=== PATIENT | male | born 1990 ===

== ENCOUNTER 2017-04-24 22:32 | Observation (INO) | payer MEDICAID ==
[2017-04-24] MEDS ORDERED: Sodium Chloride 0.9% 1,000 ML IV ONE (23:25)
[2017-04-24] MEDS ORDERED: Dexamethasone 4 mg/1 ml IVP STA (23:25)
[2017-04-24] MEDS ORDERED: Dexamethasone 4 mg/1 ml ONE (23:42)
[2017-04-24 23:43] LABS: BASO # 0.1 K/uL (0.0-0.2); BASO % 0.5 % (0.0-2.0); EOS # 0.1 K/uL (0.0-0.7); EOS % 0.4 % (0.0-4.0); HEMATOCRIT 41.1 % (35.0-51.0); LYMPH # 1.8 K/uL (1.0-4.3); MEAN CELL VOLUME 87.8 fL (80.0-94.0); MEAN CORPUSCULAR HEMOGLOBIN 28.5 pg (27.0-31.0); MEAN CORPUSCULAR HGB CONC 32.4 g/dL (33.0-37.0); MEAN PLATELET VOLUME 8.3 fL (7.2-11.7); MONO # 1.4 K/uL (0.0-0.8); MONO % 8.9 % (0.0-10.0); RED CELL DISTRIBUTION WIDTH 14.2 % (11.5-14.5); WHITE BLOOD COUNT 15.9 K/uL (4.8-10.8)
[2017-04-24 23:51] LABS: CHLORIDE 107 mmol/L (98-107); POTASSIUM 3.5 mmol/L (3.6-5.2); SODIUM 141 mmol/L (132-148)
[2017-04-24 23:53] LABS: GFR AFRICAN-AMERICAN > 60
[2017-04-24 23:54] LABS: ALB/GLOB RATIO 1.4 (1.0-2.1); ALKALINE PHOSPHATASE 49 U/L (38-126); ALT/SGPT 20 U/L (21-72); AST/SGOT 18 U/L (17-59); BLOOD UREA NITROGEN 11 mg/dL (9-20); CALCIUM 8.8 mg/dl (8.6-10.4); CARBON DIOXIDE 22 mmol/L (22-30); GLUCOSE,RANDOM 84 mg/dL (75-110)
[2017-04-25] MEDS ORDERED: Clindamycin 600mg/50ml D5W 600 MG/50 ML VIAL IVPB ONE ×2 (00:01→08:59)
--- NOTE | 2017-04-25 00:06 | C.PDOC ---
History Of Present Illness 26 y/o male presents to ED with c/o sore throat for 3 days. Patient also notes painful swallowing. Patient reports he was evaluated by PMD today, given rx for antibiotics, but did not fill prescription. Denies fever, vomiting, cough, or other associated symptoms. Notes history of peritonsilar abscess. Time Seen by Provider: 04/24/17 23:17 Chief Complaint (Nursing): ENT Problem History Per: Patient History/Exam Limitations: no limitations Onset/Duration Of Symptoms: Days Current Symptoms Are (Timing): Still Present Location Of Pain: Throat Associated Symptoms: Sore Throat. denies: Fever, Chills, Cough, Neck Pain, Vomiting, Diarrhea Ear Symptoms: Bilateral: None Recent travel outside of the [place]: No Past Medical History Reviewed: Historical Data, Nursing Documentation, Vital Signs Vital Signs: Last Vital Signs Temp 98.5 F 04/25/17 06:28 Pulse 62 04/25/17 06:28 Resp 14 04/25/17 06:28 BP 109/67 04/25/17 06:28 Pulse Ox 98 04/25/17 06:28 - Medical History PMH: No Chronic Diseases Family History: States: Unknown Family Hx - Social History Hx Alcohol Use: Yes Hx Substance Use: Yes - Immunization History Hx Tetanus Toxoid Vaccination: No Hx Influenza Vaccination: No Hx Pneumococcal Vaccination: No Review Of Systems Except As Marked, All Systems Reviewed And Found Negative. Constitutional: Negative for: Fever, Chills ENT: Positive for: Throat Pain. Negative for: Nose Congestion Respiratory: Negative for: Cough, Shortness of Breath, Wheezing Gastrointestinal: Negative for: Nausea, Vomiting Skin: Negative for: Rash Neurological: Negative for: Headache, Dizziness Physical Exam - Physical Exam Appears: Non-toxic, No Acute Distress Skin: Normal Color, Warm, Dry Head: Atraumatic, Normacephalic Eye(s): bilateral: Normal Inspection, PERRL, EOMI Ear(s): Bilateral: Normal Nose: Normal Oral Mucosa: Moist Throat: Erythema, No Drooling, Other (left peritonsilar swelling with mild uvula deviation ) Neck: Normal ROM, Supple Chest: Symmetrical, Other (speaking in full sentences) Cardiovascular: Rhythm Regular Respiratory: Normal Breath Sounds, No Stridor, No Wheezing Gastrointestinal/Abdominal: Soft, No Tenderness, No Guarding, No Rebound Back: Normal Inspection Extremity: Normal ROM, Capillary Refill (< 2 sec.) Neurological/Psych: Oriented x3, Normal Speech, Normal Cognition ED Course And Treatment - Laboratory Results Result Diagrams: 04/24/17 23:40 04/24/17 23:40 O2 Sat by Pulse Oximetry: 99 (RA) Pulse Ox Interpretation: Normal - CT Scan/US CT Neck Soft Tissue Other Rad Studies (CT/US): Read By Radiologist, Radiology Report Reviewed CT/US Interpretation: Name: GABRIELLA SALMERON Age: 26Years M Date: 04/24/2017. SSN: [id number] : 1990. Study: CT NECK SOFT TISSUE W Requesting Physician: Gretta Aquino PA-C. Images: 271. Addl Studies: Provided Clinical History: left peritonsillar abscess? CONFIDENTIALITY STATEMENT. This transmission is confidential and is intended to be a privileged communication. It is intended only for the use of the addressee. Access to this. message by anyone else is unauthorized. If you are not the intended recipient, any disclosure, copying, distribution or any action taken, or omitted to. be taken in reliance on it is prohibited and may be unlawful. If you received this communication in error, please notify us by telephone, so that return. of this document to us can be arranged. Page 1 of 2. EXAM: CT Neck With Intravenous Contrast. CLINICAL HISTORY: 26 years old, male; Pain; Throat pain; Additional info: Left peritonsillar abscess? TECHNIQUE : Axial computed tomography images of the neck with intravenous contrast. This CT exam was. performed using one or more of the following dose reduction techniques: automated exposure. control, adjustment of the mA and/or kV according to patient size, and/or use of iterative. reconstruction technique. Coronal and sagittal reformatted images were created and reviewed. CONTRAST: 100 mL of [id number] administered intravenously. COMPARISON: CT - NECK SOFT TISSUE W/CONTRAST 04/24/2016 6:42:26 PM. FINDINGS: Nasopharynx: Unremarkable. Oropharynx: Enlargement of palatine tonsils, LEFT greater than RIGHT with surrounding edema. 2.4 x 2.0 x 2.1 cm amorphous area of decreased attenuation with faint partial peripheral. enhancement within LEFT peritonsillar region. Hypopharynx: Unremarkable. Larynx: Unremarkable. Normal epiglottis. Trachea: Unremarkable. Retropharyngeal space: Unremarkable. Submandibular/parotid glands: Unremarkable. Glands are normal in size. Thyroid: Unremarkable. No enlarged or calcified nodules. Bones/joints: No acute fracture. Soft tissues: Unremarkable. Vasculature: No acute findings. Lymph nodes: Shotty cervical lymph nodes, likely reactive. Lung apices: Unremarkable as visualized. IMPRESSION: 1. Tonsillitis with LEFT peritonsillar phlegmon/early abscess. 2. Incidental/non-acute findings are described above. Progress Note: Treated with Toradol, Decadron, IV abx, and IV fluids. CT neck soft tissue and labs ordered, reviewed. Discussed with Dr. Vicente at 01:55. Requests to monitor pt in ER until he comes in the morning to evaluate. Disposition - Disposition Disposition Time: 06:47 Condition: STABLE - Clinical Impression Clinical Impression: Peritonsillar abscess - PA / BIOMEDICAL EQUIPMENT TECH / Resident Statement MD/DO has reviewed & agrees with the documentation as recorded. - Scribe Statement The provider has reviewed the documentation as recorded by the Nayeliibmariam Mantilla All medical record entries made by the Smita were at my direction and personally dictated by me. I have reviewed the chart and agree that the record accurately reflects my personal performance of the history, physical exam, medical decision making, and the department course for this patient. I have also personally directed, reviewed, and agree with the discharge instructions and disposition. Physician Patient Turnover Patient Signed Over To: Amada Contreras Handoff Comments: pending Dr Cinthia grossman
[2017-04-25] MEDS ORDERED: Iodixanol 320 MG/ML 100 ML BOTTLE IV ONE (00:12)
--- NOTE | 2017-04-25 01:30 | CT ---
EXAM: CT Neck With Intravenous Contrast CLINICAL HISTORY: 26 years old, male; Pain; Throat pain; Additional info: Left peritonsillar abscess? TECHNIQUE: Axial computed tomography images of the neck with intravenous contrast. This CT exam was performed using one or more of the following dose reduction techniques: automated exposure control, adjustment of the mA and/or kV according to patient size, and/or use of iterative reconstruction technique. Coronal and sagittal reformatted images were created and reviewed. CONTRAST: 100 mL of [id number] administered intravenously. COMPARISON: CT - NECK SOFT TISSUE W/CONTRAST 04/24/2016 6:42:26 PM FINDINGS: Nasopharynx: Unremarkable. Oropharynx: Enlargement of palatine tonsils, LEFT greater than RIGHT with surrounding edema. 2.4 x 2.0 x 2.1 cm amorphous area of decreased attenuation with faint partial peripheral enhancement within LEFT peritonsillar region. Hypopharynx: Unremarkable. Larynx: Unremarkable. Normal epiglottis. Trachea: Unremarkable. Retropharyngeal space: Unremarkable. Submandibular/parotid glands: Unremarkable. Glands are normal in size. Thyroid: Unremarkable. No enlarged or calcified nodules. Bones/joints: No acute fracture. Soft tissues: Unremarkable. Vasculature: No acute findings. Lymph nodes: Shotty cervical lymph nodes, likely reactive. Lung apices: Unremarkable as visualized. IMPRESSION: 1. Tonsillitis with LEFT peritonsillar phlegmon/early abscess. 2. Incidental/non-acute findings are described above.
[2017-04-25] MEDS ORDERED: Oxycodone/Acetaminophen 5/325 mg Tab PO STA (03:50)
[2017-04-25] MEDS ORDERED: Oxycodone/Acetaminophen 5/325 mg Tab ONE (04:20)
[2017-04-25] MEDS ORDERED: Lidocaine 1% w Epi 1:100,000 Inj INJ ONE (07:01)
[2017-04-25] MEDS ORDERED: Lidocaine 2% w Epi 1:100,000 Inj IJ ONE (07:30)
[2017-04-25] MEDS ORDERED: Dexamethasone 4 mg/1 ml IVP STA (08:46)
[2017-04-25] MEDS ORDERED: Dexamethasone 4 mg/1 ml ONE (08:59)
[2017-04-25] MEDS ORDERED: Dexamethasone 4 mg/1 ml IVP SCH (09:00)
[2017-04-25] MEDS ORDERED: Naproxen 550 mg Tab PO ONE (09:55)
--- NOTE | 2017-04-25 14:10 | CP.PCM.PN ---
Subjective - Date & Time of Evaluation Date of Evaluation: 04/25/17 Time of Evaluation: 08:00 - Subjective Subjective: see below Objective - Vital Signs/Intake and Output Vital Signs (last 24 hours): Temp Pulse Resp BP Pulse Ox 98.7 F 88 18 118/55 L 100 04/25/17 11:36 04/25/17 11:36 04/25/17 11:36 04/25/17 11:36 04/25/17 11:36 - Medications Medications: Current Medications Dexamethasone (Decadron Inj) 8 mg IVP Q8 STUART Stop: 04/25/17 16:00 Last Admin: 04/25/17 09:09 Dose: 8 mg Clindamycin Phosphate 600 mg/ (Sodium Chloride) 54 mls @ 100 mls/hr IVPB Q8H STUART Last Admin: 04/25/17 09:07 Dose: 100 mls/hr Assessment and Plan - Assessment and Plan (Free Text) Assessment: 26 y/o male with 4 days of left-sided sore throat. His pmd prescribed Clinda but he did not start it. He came in overnight with severe pain and inability to tolerate PO's. He has h/o [employer] in the past. PMH denies Allergies PCN Meds denies Social denies ETOH or IVDA Exam awake, alert, comfortable voice strong neck soft, no masses, no swelling oc/op: no trismus; left soft palate swollen, red and tender WBC 15.9 CT c/w left [employer] Procedure: fiberoptic laryngoscopy 02457: no oropharyngeal, hypopharyngeal or laryngeal edema Procedure: I&D left Peritonsillar abscess 49831. Left soft palate anesthetized with Lidocaine 1% with epi injection. Using 19g needle on 10cc syringe, 3cc of pus was aspirated from peritonsillar space. Repeat aspiration was -ve for further pus. Then a small mucosal incision was made with 15 blade and pertonsillar space / abscess cavity was entered and gently spread with sterile tonsil clamp. no further pus encountered. wound was irrigated with sterile saline. minimal expected bleeding, which self resolved. patient tolerated procedure well. no complications. Impression left Peritonsillar Abscess, s/p I&D dehydration Plan Admit for IV abx, IV steroids, IVF advance diet importance of taking all of abx after d/c stressed with patient, as was importance of probiotic. his female friend was also present at bedside. indication for tonsillectomy as o/p also d/w patient to prevent recurrence of [employer]
[2017-04-25] MEDS: Dextrose 5%/0.45% NS 1,000 ML IV SCH (15:05)
[2017-04-25 16:36] VITALS: RESP 20; O2SAT 98
[2017-04-25] MEDS: Clindamycin 600mg/50ml D5W 600 MG/50 ML VIAL IVPB SCH (18:12)
[2017-04-26] MEDS: Clindamycin 600mg/50ml D5W 600 MG/50 ML VIAL IVPB SCH ×2 (01:06→08:46)
[2017-04-26] MEDS: Dextrose 5%/0.45% NS 1,000 ML IV SCH (04:06)
[2017-04-26 08:46] VITALS: BP 105/61; PULSE 63; TEMP 97.2
== END 2017-04-26 12:06 | disposition home or self-care (01) ==
LOC: C.ER 22:32 → C.9OBSV 04-25 01:55 → C.9E 04-25 08:38 → C.6T 04-25 11:29
PROVIDERS: ADMIT Otolaryngology; ATTEND Otolaryngology
DX: J36 Peritonsillar abscess (principal); E86.0 Dehydration
CPT/HCPCS: 70491; 80053; 85025; 87040; 87070; 96365; 96374; 99285; G0378; J1100; J1885; J2270; J2405; J7040; J7042; Q9967

== ENCOUNTER 2018-05-05 23:00 | Emergency (ER) | payer MEDICAID ==
[2018-05-05 23:29] VITALS: BP 125/69; PULSE 68; RESP 18; TEMP 98; O2SAT 99
--- NOTE | 2018-05-06 00:16 | C.PDOC ---
History Of Present Illness 27 years old male presents to ED for complaints of left thumb swelling that began 3 days ago. Patient states he had a tendon rupture repair 2 months ago by . Over the last couple weeks, he developed "nodules of scar tissue", however, in the last 3 days patient noticed redness and swelling to area which prompted the ED visit. Denies PMHx of diabetes, fever, change in sensation or any other physical complaints. Patient also states he did not take any medication for pain. Time Seen by Provider: 05/05/18 23:46 Chief Complaint (Nursing): Abnormal Skin Integrity History Per: Patient History/Exam Limitations: no limitations Onset/Duration Of Symptoms: Days (3) Current Symptoms Are (Timing): Still Present Location Of Injury: Left: Hand (Swelling) Recent travel outside of the [place]: No Past Medical History Reviewed: Historical Data, Nursing Documentation, Vital Signs Vital Signs: Last Vital Signs Temp 98 F 05/05/18 23:24 Pulse 68 05/05/18 23:24 Resp 18 05/05/18 23:24 BP 125/69 05/05/18 23:24 Pulse Ox 99 05/06/18 02:01 - Medical History PMH: No Chronic Diseases Surgical History: No Surg Hx Family History: States: Unknown Family Hx - Social History Hx Alcohol Use: Yes (occasionally) Hx Substance Use: Yes (occasionally on family gatherings) - Immunization History Hx Tetanus Toxoid Vaccination: No Hx Influenza Vaccination: No Hx Pneumococcal Vaccination: No Review Of Systems Except As Marked, All Systems Reviewed And Found Negative. Skin: Positive for: Other (Left thumb swelling ) Physical Exam - Physical Exam Appears: Well, Non-toxic, No Acute Distress Skin: Warm, Dry, No Rash Head: Atraumatic, Normacephalic Eye(s): bilateral: Normal Inspection, EOMI Nose: Normal Oral Mucosa: Moist Neck: Normal ROM, Supple Chest: Symmetrical Respiratory: No Accessory Muscle Use Extremity: No Normal ROM, Tenderness (Right proximal thumb ), Swelling (Right proximal thumb ), Other (Well healed incision to the mid palmar aspect; erythema to right proximal aspect of thumb with healed incision) Pulses: Left Radial: Normal, Right Radial: Normal Neurological/Psych: Oriented x3, Normal Speech, Normal Sensation Gait: Steady ED Course And Treatment O2 Sat by Pulse Oximetry: 99 (RA) Pulse Ox Interpretation: Normal Progress Note: Administered Cleocin. Case discussed with who instructs antibiotics and to follow up in the office. PT verbalized understanding. Disposition - Disposition Referrals: Joce Mendez MD [Primary Care Provider] - Disposition: HOME/ ROUTINE Disposition Time: 00:13 Condition: STABLE Additional Instructions: Follow up with Dr Reyes in 1-2 days. Call the office at [phone]. Return to ER if symptoms persist or worsen. Prescriptions: Clindamycin [Cleocin] 300 mg PO Q6 #28 cap Instructions: Cellulitis (Skin Infection), Adult (DC) Forms: [employer] (Bulgarian) - Clinical Impression Clinical Impression: Cellulitis - PA / SHOE RECONDITIONER / Resident Statement MD/DO has reviewed & agrees with the documentation as recorded. - Scribe Statement The provider has reviewed the documentation as recorded by the Nayeliibmariam Parry All medical record entries made by the Nayeliibmariam were at my direction and personally dictated by me. I have reviewed the chart and agree that the record accurately reflects my personal performance of the history, physical exam, medical decision making, and the department course for this patient. I have also personally directed, reviewed, and agree with the discharge instructions and disposition.
== END 2018-05-06 00:25 | disposition home or self-care (01) ==
LOC: C.ER 23:00 → SUPCPDRO 23:00 → C.ER 05-06 00:25
DX: L03.012 Cellulitis of left finger (principal)

== ENCOUNTER → 2018-08-28 21:10 | Emergency (ER) | payer MEDICAID | END | disposition left against medical advice (07) | LOC: C.ER 21:10 | DX: Z02.89 Encounter for other administrative examinations (principal); R07.0 Pain in throat ==

== ENCOUNTER 2018-08-28 21:29 | Emergency (ER) | payer MEDICAID ==
--- NOTE | 2018-08-28 22:59 | C.PDOC ---
History Of Present Illness 27 year old male with a history of multiple episodes of tonsillitis and peritonsillar abscesses, complains of throat pain which began this morning. Patient states that he noted swollen tonsils, and a white spot. He denies a change in voice, fever, or taking any medicine for the pain. Time Seen by Provider: 08/28/18 22:11 Chief Complaint (Nursing): ENT Problem History Per: Patient History/Exam Limitations: None Onset/Duration Of Symptoms: Days (1) Current Symptoms Are (Timing): Still Present Quality (Mouth/Throat): Swelling, Other (pain) Anticoagulant/Antiplatlet Use?: No Recent Aspirin Use: No Past Medical History Reviewed: Historical Data, Nursing Documentation, Vital Signs Vital Signs: Last Vital Signs Temp 99.3 F 08/28/18 21:30 Pulse 107 H 08/28/18 21:30 Resp 18 08/28/18 21:30 BP 138/84 08/28/18 21:30 Pulse Ox 98 08/28/18 21:30 - Medical History PMH: No Chronic Diseases Surgical History: No Surg Hx Family History: States: No Known Family Hx - Social History Hx Alcohol Use: Yes (occasionally) Hx Substance Use: No (denies) - Immunization History Hx Tetanus Toxoid Vaccination: No Hx Influenza Vaccination: No Hx Pneumococcal Vaccination: No Review Of Systems Constitutional: Negative for: Fever, Chills ENT: Positive for: Throat Pain, Throat Swelling Physical Exam - Physical Exam Appears: Non-toxic, No Acute Distress Skin: Warm, Dry Head: Atraumatic, Normacephalic Eye(s): bilateral: Normal Inspection, PERRL, EOMI Ear(s): Bilateral: Normal Oral Mucosa: Moist Tongue: Normal Appearing Lips: Normal Appearing Teeth: Normal Dentition Throat: Erythema, Exudate (Scant, white exudate noted to left tonsil. ), Other (enlarged tonsils, almost touching bilaterally. ) Neck: Normal, Supple Lymphatic: Adenopathy (bilateral submandibular adenopathy) Chest: Symmetrical, No Tenderness Cardiovascular: Rhythm Regular, No Murmur Respiratory: No Rales, No Rhonchi, No Wheezing Neurological/Psych: Oriented x3, Normal Speech, Normal Cognition ED Course And Treatment O2 Sat by Pulse Oximetry: 98 (RA) Pulse Ox Interpretation: Normal Progress Note: Plan: Cleocin 300mg PO. Decadron 10mg IM. Motrin 600mg PO. Throat Culture. Rapid Strep Group Medical Decision Making Medical Decision Making: pt with hx multiple episodes of tonsillitis and peritonsilar abscesses with sore throat today; pt with bilateral enlarged almost touching tonsil with exudates. rapid strep neg, but given pt's hx, will tx with clindamycin. decadron given in ed. d/c home and f/u Dr Hardy. Disposition Counseled Patient/Family Regarding: Studies Performed, Diagnosis, Need For Followup, Rx Given - Disposition Referrals: Joce Mendez MD [Medical Doctor] - Phil Hardy MD [Staff Provider] - Disposition: HOME/ ROUTINE Disposition Time: 22:57 Condition: GOOD Additional Instructions: Please take antibiotics until completed. Follow up with Dr Mendez and Dr Hardy as soon as possible. Motrin for pain. Gargle with warm salty water or listerine several times a day. Return to ER for any worse problems. Prescriptions: Clindamycin [Cleocin] 300 mg PO Q6 #28 cap Ibuprofen [Motrin] 600 mg PO TID #30 tab Instructions: Sore Throat, Adult (DC) Forms: [employer] (German), General Discharge Instructions - Clinical Impression Clinical Impression: Acute tonsillitis - PA / CLIENT SUPPORT ASSOCIATE / Resident Statement MD/DO has reviewed & agrees with the documentation as recorded. - Scribe Statement The provider has reviewed the documentation as recorded by the Scribe (Adalberto Richards) All medical record entries made by the Scribe were at my direction and personally dictated by me. I have reviewed the chart and agree that the record accurately reflects my personal performance of the history, physical exam, medical decision making, and the department course for this patient. I have also personally directed, reviewed, and agree with the discharge instructions and disposition.
[2018-08-28 23:14] VITALS: BP 118/77; PULSE 89; RESP 20; TEMP 98.6
[2018-08-29 00:09] VITALS: O2SAT 98
== END 2018-08-28 23:15 | disposition home or self-care (01) ==
LOC: C.ER 21:29
DX: J03.90 Acute tonsillitis, unspecified (principal)
CPT/HCPCS: 87070; 87430; 96372; 99283; J1100

== ENCOUNTER 2018-10-27 07:47 | Emergency (ER) | payer MEDICAID ==
[2018-10-27] MEDS ORDERED: Morphine 4 MG/ML VIAL ONE (08:18)
[2018-10-27] MEDS ORDERED: Sodium Chloride 0.9% 1,000 ML ONE (08:18)
[2018-10-27] MEDS ORDERED: Sodium Chloride 0.9% 1,000 ML IV STA (08:24)
[2018-10-27 08:38] LABS: BASO % 0.2 % (0.0-2.0); LYMPH # 0.9 K/uL (1.0-4.3); LYMPH % 6.6 % (20.0-40.0); MEAN CELL VOLUME 88.9 fL (80.0-94.0); MEAN CORPUSCULAR HEMOGLOBIN 29.8 pg (27.0-31.0); MEAN CORPUSCULAR HGB CONC 33.5 g/dL (33.0-37.0); MEAN PLATELET VOLUME 9.1 fL (7.2-11.7); MONO # 0.6 K/uL (0.0-0.8); NEUT # 12.4 K/uL (1.8-7.0); NEUT % 89.2 % (50.0-75.0); NRBC % 0.1 % (0.0-2.0); PLATELET COUNT 288 K/uL (130-400); RBC 5.03 Mil/uL (4.40-5.90); RED CELL DISTRIBUTION WIDTH 14.5 % (11.5-14.5); WHITE BLOOD COUNT 13.9 K/uL (4.8-10.8)
[2018-10-27 08:52] LABS: ALB/GLOB RATIO 2.2 (1.0-2.1); ALBUMIN 5.6 g/dL (3.5-5.0); ALT/SGPT 27 U/L (21-72); AST/SGOT 42 U/L (17-59); BLOOD UREA NITROGEN 12 mg/dL (9-20); GFR NON-AFRICAN AMERICAN > 60; LIPASE 33 U/L (23-300)
[2018-10-27 09:10] LABS: LYMPHOCYTE 6 % (20-40); MONOCYTE 4 % (0-10); NEUTROPHIL 90 % (50-75); TOTAL CELLS COUNTED 100
[2018-10-27 09:11] LABS: ANISOCYTOSIS SLIGHT; LARGE PLATELETS PRESENT; PLATELET ESTIMATE NORMAL (NORMAL); TOXIC GRANULATION PRESENT
[2018-10-27 09:13] LABS: HYPOCHROMIC SLIGHT; POLYCHROMIC SLIGHT
[2018-10-27] MEDS ORDERED: Lactated Ringer's 1,000 ML IV ONE (09:32)
--- NOTE | 2018-10-27 09:48 | C.PDOC ---
History Of Present Illness 27 years old male presents to ED for complaint of upper abdominal pain associated with vomiting that began last night. Patient states he was heavily drinking last night. Denies diarrhea, fever, or any other complaints. Time Seen by Provider: 10/27/18 08:04 Chief Complaint (Nursing): Abdominal Pain History Per: Patient History/Exam Limitations: no limitations Onset/Duration Of Symptoms: Hrs Current Symptoms Are (Timing): Still Present Location Of Pain/Discomfort: RUQ, LUQ Radiation Of Pain To:: None Quality Of Discomfort: "Pain" Associated Symptoms: Nausea, Vomiting. denies: Fever, Chills, Diarrhea Exacerbating Factors: None Alleviating Factors: None Last Bowel Movement: Today Recent travel outside of the [place]: No Past Medical History Reviewed: Historical Data, Nursing Documentation, Vital Signs Vital Signs: Last Vital Signs Temp 97.5 F L 10/27/18 07:51 Pulse 56 L 10/27/18 07:51 Resp 20 10/27/18 07:51 BP 121/72 10/27/18 07:51 Pulse Ox 98 10/27/18 07:51 - Medical History PMH: No Chronic Diseases Family History: States: Unknown Family Hx - Social History Hx Alcohol Use: Yes (occasionally) Hx Substance Use: No (denies) - Immunization History Hx Tetanus Toxoid Vaccination: No Hx Influenza Vaccination: No Hx Pneumococcal Vaccination: No Review Of Systems Constitutional: Negative for: Fever, Chills Gastrointestinal: Positive for: Nausea, Vomiting, Abdominal Pain. Negative for: Diarrhea Genitourinary: Negative for: Dysuria Skin: Negative for: Rash Neurological: Negative for: Weakness, Numbness Physical Exam - Physical Exam Appears: Non-toxic, In Acute Distress (Pain ), Other (Uncomfortable ) Skin: Normal Color, Warm, Dry, No Rash Head: Atraumatic, Normacephalic Eye(s): bilateral: Normal Inspection, PERRL, EOMI Oral Mucosa: Moist Neck: Normal ROM, Supple Chest: Symmetrical, No Tenderness Cardiovascular: Rhythm Regular Respiratory: Normal Breath Sounds, No Rales, No Rhonchi, No Wheezing Gastrointestinal/Abdominal: Soft, Tenderness (Upper abdomen ), Guarding, No Rebound Extremity: Normal ROM Extremity: Bilateral: Atraumatic, Normal Color And Temperature, Normal ROM Pulses: Left Radial: Normal, Right Radial: Normal Neurological/Psych: Oriented x3, Normal Speech ED Course And Treatment - Laboratory Results Result Diagrams: 10/27/18 08:34 10/27/18 08:34 O2 Sat by Pulse Oximetry: 98 (RA) Pulse Ox Interpretation: Normal - Other Rad Abdomen X-Ray X-Ray: Viewed By Me, Read By Radiologist Interpretation: Date of service: 10/27/2018. HISTORY: severe epigastric pain. COMPARISON: None available. FINDINGS: BOWEL: Normal. No obstruction. No free air. BONES: Normal. OTHER FINDINGS: None. IMPRESSION: No significant or acute findings to account for/ related to the clinical presentation. Progress Note: Administered IV Fluids, Morphine, Zofran, and Protonix. Ordered blood work, urinalysis, and Erect Abd (Perf) x-Ray. On re-evaluation patient feels better, tolerates po and is stable to be d/c home with PMD follow up. Disposition - Disposition Disposition: HOME/ ROUTINE Disposition Time: 12:10 Condition: IMPROVED Additional Instructions: Follow up with PMD within 1-2 days. Return to ED if feel worse. Prescriptions: Famotidine [Pepcid] 20 mg PO BID #20 tab Ondansetron ODT [Zofran ODT] 4 mg PO .Q4-6H PRN #20 odt PRN Reason: Nausea/Vomiting Instructions: Gastritis (DC) Forms: [employer] (Czech) - Clinical Impression Clinical Impression: Gastritis due to alcohol without hemorrhage - PA / TYPER / Resident Statement MD/DO has reviewed & agrees with the documentation as recorded. - Scribe Statement The provider has reviewed the documentation as recorded by the Smita Parry All medical record entries made by the Nayeliibe were at my direction and personally dictated by me. I have reviewed the chart and agree that the record accurately reflects my personal performance of the history, physical exam, medical decision making, and the department course for this patient. I have also personally directed, reviewed, and agree with the discharge instructions and disposition.
[2018-10-27 09:54] LABS: SQUAMOUS EPITHIAL < 1 /hpf (0-5); URINE BILIRUBIN NEGATIVE (NEGATIVE); URINE BLOOD NEGATIVE (NEGATIVE); URINE CLARITY Clear (Clear); URINE COLOR Yellow (YELLOW); URINE GLUCOSE (UA) NORMAL (Normal); URINE LEUKOCYTE ESTERASE NEG Leu/uL (Negative); URINE PROTEIN 1+ mg/dL (NEGATIVE); URINE UROBILINOGEN NORMAL mg/dL (0.2-1.0)
--- NOTE | 2018-10-27 10:15 | RAD ---
Date of service: 10/27/2018 HISTORY: severe epigastric pain COMPARISON: None available. FINDINGS: BOWEL: Normal. No obstruction. No free air. BONES: Normal. OTHER FINDINGS: None. IMPRESSION: No significant or acute findings to account for/ related to the clinical presentation.
[2018-10-27 12:19] VITALS: BP 121/86; PULSE 86; RESP 18; TEMP 98.8
[2018-10-27 12:28] VITALS: O2SAT 98
== END 2018-10-27 12:19 | disposition home or self-care (01) ==
LOC: C.ER 07:47
DX: K29.20 Alcoholic gastritis without bleeding (principal)
CPT/HCPCS: 74018; 80053; 81001; 83690; 85025; 96361; 96374; 96375; 99285; C9113; J2270; J2405; J7030; J7120